=== PATIENT | female | born 1935 | race Caucasian/White ===

== ENCOUNTER 2018-08-11 06:47 | Day surgery (SDC) | payer OTHER ==
[~2018-08-11 06:47] MED LIST: ALPHA LIPOIC A600 MG PO; ASA81 MG PO; CARDIZEM CD240 MG PO; COZAAR25 MG PO; CRESTOR10 MG PO; CYMBALTA60 MG PO; DEXILANT60 MG PO; FARXIGA10 MG PO; FOLTX TABLET1 EACH PO; GLIMEPIRIDE4 MG PO; ISOSORBIDE DINI30 MG PO; JANUMET XR 50-1 EAC1 PO; KEPPRA500 MG PO; METOPROLOL SUCC25 MG PO; SYNTHROID100 MCG PO; VITAMIN D310000 UNIT PO; XANAX XR2 MG PO; [UNRECOGNIZED DRUG - OTHER]
== END 2018-08-11 20:35 | disposition home or self-care (01) ==
LOC: CIR.AMB 06:47
DX: K64.8 Other hemorrhoids (principal); K64.4 Residual hemorrhoidal skin tags